=== PATIENT | female | born 1965 | race Hispanic/Latino ===

== ENCOUNTER → 2023-12-26 07:02 | Outpatient (REF) | payer OTHER, SELFPAY ==
[2023-12-26 08:46] LABS: % Basophils 0.6 % (0-2); % Eosinophils 2.3 % (0-6); % Immature Granulocytes 0.3 % (0-0.5); % Lymphocytes 32.9 % (20.5-51.1); % Monocytes 5.9 % (1.7-9.3); Absolute Eosinophils 0.2 10^3/uL (0-0.7); Absolute Lymphocytes 2.2 10^3/uL (1.2-3.4); Absolute Monocytes 0.4 10^3/uL (0.1-0.6); Absolute Neutrophils 3.8 10^3/uL (1.4-6.5); Hematocrit 41.1 % (37.0-47.0); Hemoglobin 13.6 g/dL (12.0-16.0); Mean Corp Hgb Conc. 33.1 g/dL (33.0-37.0); Mean Corpuscular Hgb 30.3 pg (27.0-31.0); Mean Corpuscular Volume 91.5 fL (81.0-99.0); Mean Platelet Volume 10.7 fL (7.4-10.4); Nucleated Red Blood Cells % 0 %; Platelet Count 250 10^3/uL (130-400); Red Blood Cell Count 4.49 10^6/uL (4.20-5.40); Red Cell Dist. Width 12.3 % (11.5-14.5); White Blood Cell Count 6.6 10^3/uL (4.8-10.8)
[2023-12-26 09:03] LABS: Urine Albumin Negative (Neg - Trace); Urine Bilirubin Negative (Negative); Urine Character Clear (Clear); Urine Color Yellow; Urine Glucose Negative (Negative); Urine Ketone Negative (Negative); Urine Leukocyte Negative (Negative); Urine Nitrite Negative (Negative); Urine Occult Blood Negative (Negative); Urine Specific Gravity 1.015 (<1.030); Urine Urobilinogen Negative (Neg - 1+)
[2023-12-26 09:14] LABS: ALT (SGPT) 50 U/L (0-35); AST (SGOT) 44 U/L (14-36); Albumin 4.8 g/dl (3.5-5.0); Alkaline Phosphatase 129 U/L (38-126); Blood Urea Nitrogen 13 mg/dl (7-17); Calcium 9.6 mg/dl (8.4-10.2); Carbon Dioxide 27 mmol/L (22-30); Chloride 105 mmol/L (98-107); Glucose 98 mg/dl (70-99); HDL Cholesterol 49 mg/dl; LDL Cholesterol, Calculated 136 mg/dl; Potassium 4.2 mmol/L (3.5-5.1); Sodium 142 mmol/L (135-145); Total Bilirubin 0.8 mg/dl (0.2-1.3); Total Cholesterol 215 mg/dl (50-199); Triglyceride 151 mg/dl (10-149); Very Low Density Lipoprotein 30 mg/dl (0-30); eGFR > 60.00
[2023-12-26 09:28] LABS: Vitamin D, 25-OH*** 45.5 ng/mL (30-80)
[2023-12-26 09:42] LABS: TSH Reflex To Free T4 4.72 uIU/ml (0.47-4.68)
[2023-12-26 09:49] LABS: Glycohemoglobin (HgbA1c) 5.4 % (4.0-5.6)
[2023-12-26 10:11] LABS: Free T4 0.91 ng/dl (0.78-2.19)
[2023-12-28 05:42] LABS: H. pylori Breath Test Negative (Negative)
== END ==
LOC: CLINIC 07:02
PROVIDERS: ATTENDING PHYSICIAN Nurse Practitioner Acute Care
DX: R73.03 Prediabetes (principal); E78.2 Mixed hyperlipidemia; K21.9 Gastro-esophageal reflux disease without esophagitis
CPT/HCPCS: 36415; 80053; 80061; 81003; 82306; 83013; 83036; 84439; 84443; 85025

== ENCOUNTER → 2024-01-14 11:11 | Outpatient (REF) | payer OTHER, SELFPAY | LOC: HWRAD 11:11 | PROVIDERS: ATTENDING PHYSICIAN Nurse Practitioner Acute Care | DX: R10.12 Left upper quadrant pain (principal) | CPT/HCPCS: 74176 ==

== ENCOUNTER → 2024-05-04 15:44 | Outpatient (REF) | payer OTHER, SELFPAY | LOC: CLINIC 15:44 | PROVIDERS: ATTENDING PHYSICIAN Nurse Practitioner Acute Care; FAMILY PHYSICIAN Nurse Practitioner Acute Care | DX: Z12.31 Encounter for screening mammogram for malignant neoplasm of breast (principal) | CPT/HCPCS: 77063; 77067 ==

== ENCOUNTER → 2024-05-21 07:20 | Outpatient (REF) | payer OTHER, SELFPAY ==
[2024-05-21 08:16] LABS: Iron 111 ug/dl (37-170)
[2024-05-21 08:50] LABS: Hepatitis B Surface Antigen Negative (Negative)
[2024-05-21 08:53] LABS: Ferritin 62.2 ng/ml (11.1-264.0)
[2024-05-21 09:08] LABS: Hepatitis B Core Ab, Total Negative (Negative); Hepatitis C Antibody Negative (Negative)
[2024-05-21 11:07] LABS: Hepatitis B Surface Antibody Positive
[2024-05-21 14:33] LABS: Hepatitis A Antibody, Total Positive (Negative)
[2024-05-23 01:57] LABS: IgA 261 mg/dl (70-400); IgG 1533 mg/dl (700-1600); IgM 74 mg/dl (40-230)
[2024-05-23 02:58] LABS: Ceruloplasmin 27 mg/dL (16-45)
[2024-05-23 08:25] LABS: F-Actin Antibody IgG 26 Units (0-19); Mitochondrial M2 Ab, IgG 11.8 Units (0.0-24.9)
[2024-05-23 08:30] LABS: ANA, IgG Reflex to HEp-2 None Detected (None Detected)
== END ==
LOC: REG 07:20
PROVIDERS: ATTENDING PHYSICIAN Internal Medicine Gastroenterology; FAMILY PHYSICIAN Nurse Practitioner Acute Care
DX: R79.89 Other specified abnormal findings of blood chemistry (principal)
CPT/HCPCS: 82390; 82728; 82784; 83540; 86015; 86038; 86256; 86376; 86381; 86704; 86706; 86708; 86803; 87340

== ENCOUNTER → 2024-06-06 14:35 | Outpatient (REF) | payer OTHER, SELFPAY | LOC: HWRAD 14:35 | PROVIDERS: ATTENDING PHYSICIAN Internal Medicine Gastroenterology | DX: R79.89 Other specified abnormal findings of blood chemistry (principal) | CPT/HCPCS: 76700 ==

== ENCOUNTER 2024-06-15 06:20 | Day surgery (SDC) | payer OTHER, SELFPAY | END 2024-06-15 11:34 | disposition home or self-care (01) | LOC: GI 06:20 | PROVIDERS: ATTENDING PHYSICIAN Internal Medicine Gastroenterology | DX: K29.70 Gastritis, unspecified, without bleeding (principal); K31.7 Polyp of stomach and duodenum; K21.9 Gastro-esophageal reflux disease without esophagitis | CPT/HCPCS: 43239; 88305; 88342 ==